=== PATIENT | female | born 1995 | race Caucasian/White ===

== ENCOUNTER 2016-08-29 10:49 | Emergency (ER) | payer MEDICAID ==
[~2016-08-29] VITALS: Ht 167.6 cm; Wt 85.6 kg
[2016-08-29 10:51] VITALS: BP 113/72
[2016-08-29] MEDS ORDERED: MELO-190 PO (11:09)
[2016-08-29] MEDS ORDERED: OXYcodone/APAP 5/325MG TABLET PO ONE (11:30)
[2016-08-29] MEDS ORDERED: OXYcodone/APAP 5/325MG TABLET ONE (11:37)
== END 2016-08-29 11:54 | disposition home or self-care (01) ==
LOC: ED 11:07
DX: K08.89 Other specified disorders of teeth and supporting structures (principal)
CPT/HCPCS: 99283